=== PATIENT | female | born 1995 | race Caucasian/White ===

== ENCOUNTER 2016-10-24 20:38 | Emergency (ER) | payer OTHER ==
[~2016-10-24] VITALS: Ht 172.7 cm; Wt 79.4 kg
[2016-10-24 20:50] VITALS: BP 136/91
--- NOTE | 2016-10-24 21:05 | ED.ADGEN ---
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 She states she was eating in the cafeteria at her college and also started having pain in the left side of her throat. She states she felt her throat swell. She states the swelling has gone down since she arrived emergency department the pains persisted. She denies any troubles breathing, she points to the left side of the anterior aspect of her throat when she states where it hurts. She states she has a history of arthritis and takes treatment for this. She denies fevers chills shortness of breath, trouble swallowing, trismus. She presents to ER with her friend. Review of Systems Review of Systems Constitutional: Denies fever or chills [] Eyes: Denies change in visual acuity, redness, or eye pain [] HENT: Denies nasal congestion positive for sore throat Respiratory: Denies cough or shortness of breath [] Cardiovascular: No additional information not addressed in HPI [] GI: Denies abdominal pain, nausea, vomiting, bloody stools or diarrhea [] : Denies dysuria or hematuria [] Musculoskeletal: Denies back pain or joint pain [] Integument: Denies rash or skin lesions [] Neurologic: Denies headache, focal weakness or sensory changes [] Endocrine: Denies polyuria or polydipsia [] Current Medications Current Medications Current Medications Medications (Trade) Dose Ordered Sig/Celestino Start Time Stop Time Status Last Admin Dose Admin Info (Do NOT chart on this entry -- for MONITORING) 1 each PRN DAILY PRN 10/24/16 23:30 10/26/16 23:29 Iohexol (Omnipaque 300 Mg/ml) 75 ml 1X ONCE 10/24/16 23:30 10/24/16 23:31 DC 10/24/16 23:56 75 ML Multi-Ingredient Mouthwash/Gargle (Gi Cocktail) 20 ml 1X ONCE 10/24/16 22:00 10/24/16 22:51 DC 10/24/16 22:00 20 ML Sodium Chloride 1,000 ml @ 1,000 mls/hr 1X ONCE 10/24/16 23:30 10/25/16 00:29 DC Allergies Allergies Allergies Coded Allergies Type Severity Reaction Last Updated Verified No Known Drug Allergies 10/24/16 No Physical Exam Physical Exam Constitutional: Well developed, well nourished, no acute distress, non-toxic appearance. [] HENT: Normocephalic, atraumatic, bilateral external ears normal, oropharynx moist, no oral exudates, nose normal. Posterior first clear, no trismus, no Jt angina, no tooth decay or abscess is appreciated Eyes: PERRLA, EOMI, conjunctiva normal, no discharge. [] Neck: Normal range of motion, no tenderness, supple, no stridor. [] Cardiovascular:Heart rate regular rhythm, no murmur [] Lungs & Thorax: Bilateral breath sounds clear to auscultation [] Abdomen: Bowel sounds normal, soft, no tenderness, no masses, no pulsatile masses. [] Skin: Warm, dry, no erythema, no rash. [] Back: No tenderness, no CVA tenderness. [] Extremities: No tenderness, no cyanosis, no clubbing, ROM intact, no edema. [] Neurologic: Alert and oriented X 3, normal motor function, normal sensory function, no focal deficits noted. [] Psychologic: Affect normal, judgement normal, mood normal. [] Current Patient Data Vital Signs Vital Signs Date Time Temp Pulse Resp B/P (MAP) Pulse Ox O2 Delivery O2 Flow Rate FiO2 10/24/16 20:50 99.1 91 16 99 Room Air Lab Results Laboratory Tests Test 10/24/16 21:40 10/24/16 23:30 10/24/16 23:35 Group A Streptococcus Rapid Negative (NEGATIVE) White Blood Count 11.8 x10^3/uL (4.0-11.0) H Red Blood Count 5.24 x10^6/uL (3.50-5.40) Hemoglobin 14.9 g/dL (12.0-15.5) Hematocrit 44.0 % (36.0-47.0) Mean Corpuscular Volume 84 fL (79-100) Mean Corpuscular Hemoglobin 28 pg (25-35) Mean Corpuscular Hemoglobin Concent 34 g/dL (31-37) Red Cell Distribution Width 12.9 % (11.5-14.5) Platelet Count 312 x10^3/uL (140-400) Neutrophils (%) (Auto) 57 % (31-73) Lymphocytes (%) (Auto) 32 % (24-48) Monocytes (%) (Auto) 10 % (0-9) H Eosinophils (%) (Auto) 1 % (0-3) Basophils (%) (Auto) 1 % (0-3) Neutrophils # (Auto) 6.7 x10^3uL (1.8-7.7) Lymphocytes # (Auto) 3.7 x10^3/uL (1.0-4.8) Monocytes # (Auto) 1.1 x10^3/uL (0.0-1.1) Eosinophils # (Auto) 0.1 x10^3/uL (0.0-0.7) Basophils # (Auto) 0.1 x10^3/uL (0.0-0.2) Sodium Level 141 mmol/L (136-145) Potassium Level 3.7 mmol/L (3.5-5.1) Chloride Level 105 mmol/L (98-107) Carbon Dioxide Level 26 mmol/L (21-32) Anion Gap 10 (6-14) Blood Urea Nitrogen 14 mg/dL (7-20) Creatinine 1.0 mg/dL (0.6-1.0) Estimated GFR (Cockcroft-Gault) 71.4 BUN/Creatinine Ratio 14 (6-20) Glucose Level 93 mg/dL (70-99) Calcium Level 9.4 mg/dL (8.5-10.1) Total Bilirubin 0.5 mg/dL (0.2-1.0) Aspartate Amino Transferase (AST) 34 U/L (15-37) Alanine Aminotransferase (ALT) 98 U/L (14-59) H Alkaline Phosphatase 47 U/L (46-116) Total Protein 8.2 g/dL (6.4-8.2) Albumin 4.6 g/dL (3.4-5.0) Albumin/Globulin Ratio 1.3 (1.0-1.7) Urine Collection Type Unknown Urine Color Yellow Urine Clarity Clear Urine pH 5.5 Urine Specific [place] 1.020 Urine Protein Neg (NEG-TRACE) Urine Glucose (UA) Neg mg/dL (NEG) Urine Ketones (Stick) Neg mg/dL (NEG) Urine Blood Trace (NEG) Urine Nitrite Neg (NEG) Urine Bilirubin Neg (NEG) Urine Urobilinogen Dipstick 0.2 mg/dL (0.2 mg/dL) Urine Leukocyte Esterase Small (NEG) Urine RBC Occ /HPF (0-2) Urine WBC 5-10 /HPF (0-4) Urine Squamous Epithelial Cells Occ /LPF Urine Bacteria Few /HPF (0-FEW) EKG EKG [] Radiology/Procedures Radiology/Procedures [address] [id number] IMAGING REPORT Signed PATIENT: ARNALDO HERNÁNDEZ ACCOUNT: [id number] : 1995 LOCATION: ER AGE: 20 SEX: F EXAM STATUS: REG ER ORD. PHYSICIAN: SANTANA CHAUDHRY MD REASON: Left sided throat pain after eating tonight, throat swelling PROCEDURE: CT SOFT TISSUE NECK W/CONTRAST PROCEDURE CT neck with contrast HISTORY Left-sided throat and neck pain and swelling TECHNIQUE Exposure: One or more of the following individualized dose reduction techniques were utilized for this exam: 1. Automated exposure control. 2. Adjustment of the mA and/or kV according to patient size. 3. Use of iterative reconstruction technique. Helical CT imaging of the neck with 75 milliliters Omnipaque 300 intravenous contrast COMPARISON No prior FINDINGS No discrete narrowing, mucosal thickening, mass or mucosal enhancement of the oral cavity, nasopharynx, hypopharynx or larynx. Thyroid gland, salivary glands, submandibular space, sublingual space are unremarkable. No mass or adenopathy in the neck. Vessels unremarkable. Lung apices and bones are unremarkable. IMPRESSION No acute abnormality. Electronically signed by: Antonina Carranza MD (October 25, 2016 00:32:24) DICTATED AND SIGNED BY: ANTONINA CARRANZA MD DATE: 10/25/16 003 CC: SANTANA CHAUDHRY MD; NON,STAFF ~ Course & Med Decision Making Course & Med Decision Making Pertinent Labs and Imaging studies reviewed. (See chart for details) Labs, CT soft tissue of the neck did not show any acute abnormalities. Patient is being discharged home with pain meds. She is to follow-up with her primary care physician if her pain returns, if she has troubles breathing or other concerns, she is to return back to ER. She being discharged in stable condition this time. Final Impression Final Impression Neck Pain Problems: Dragon Disclaimer Dragon Disclaimer This electronic medical record was generated, in whole or in part, using a voice recognition dictation system. SANTANA CHAUDHRY MD October 24, 2016 21:05
[2016-10-24] MEDS ORDERED: LIDO:MAALOX 1:1 20 ML SINGLE DOSE PO ONE (22:00)
[2016-10-24] MEDS ORDERED: IOHEXOL 300 MG/ML 75 ML VIAL. IV ONE (23:30)
[2016-10-24] MEDS ORDERED: CONTRAST GIVEN MC PRN (23:30)
[2016-10-24] MEDS ORDERED: IV NORMAL SALINE 1,000ML 1,000 ML IV ONE (23:30)
[2016-10-24 23:46] LABS: BASO # 0.1 x10^3/uL (0.0-0.2); BASO % 1 % (0-3); EOS # 0.1 x10^3/uL (0.0-0.7); EOS % 1 % (0-3); HEMOGLOBIN 14.9 g/dL (12.0-15.5); LYMPH # 3.7 x10^3/uL (1.0-4.8); LYMPH % 32 % (24-48); MEAN CORPUSCULAR HEMOGLOBIN 28 pg (25-35); MEAN CORPUSCULAR HGB CONC 34 g/dL (31-37); MEAN CORPUSCULAR VOLUME 84 fL (79-100); MONO # 1.1 x10^3/uL (0.0-1.1); MONO % 10 % (0-9); NEUT # 6.7 x10^3uL (1.8-7.7); NEUT % 57 % (31-73); PLATELET COUNT 312 x10^3/uL (140-400); RED BLOOD COUNT 5.24 x10^6/uL (3.50-5.40); RED CELL DISTRIBUTION WIDTH 12.9 % (11.5-14.5); WHITE BLOOD COUNT 11.8 x10^3/uL (4.0-11.0)
[2016-10-24 23:57] LABS: ALBUMIN 4.6 g/dL (3.4-5.0); ALBUMIN/GLOBULIN RATIO 1.3 (1.0-1.7); CALCIUM 9.4 mg/dL (8.5-10.1); GFR 71.4; POTASSIUM 3.7 mmol/L (3.5-5.1); TOTAL BILIRUBIN 0.5 mg/dL (0.2-1.0); TOTAL PROTEIN 8.2 g/dL (6.4-8.2)
[2016-10-25 00:22] LABS: BILIRUBIN,URINE NEG (NEG); CLARITY,URINE CLEAR; COLOR,URINE YELLOW; GLUCOSE,URINE NEG (NEG)
[2016-10-25 00:23] LABS: BACTERIA,URINE FEW /HPF (0-FEW); NITRITE,URINE NEG (NEG); RBC,URINE OCC /HPF (0-2); SQUAMOUS EPITHELIAL CELL,UR OCC /LPF; UROBILINOGEN,URINE 0.2 mg/dL (0.2 mg/dL)
--- NOTE | 2016-10-25 00:33 | RAD ---
PROCEDURE CT neck with contrast HISTORY Left-sided throat and neck pain and swelling TECHNIQUE Exposure: One or more of the following individualized dose reduction techniques were utilized for this exam: 1. Automated exposure control. 2. Adjustment of the mA and/or kV according to patient size. 3. Use of iterative reconstruction technique. Helical CT imaging of the neck with 75 milliliters Omnipaque 300 intravenous contrast COMPARISON No prior FINDINGS No discrete narrowing, mucosal thickening, mass or mucosal enhancement of the oral cavity, nasopharynx, hypopharynx or larynx. Thyroid gland, salivary glands, submandibular space, sublingual space are unremarkable. No mass or adenopathy in the neck. Vessels unremarkable. Lung apices and bones are unremarkable. IMPRESSION No acute abnormality. Electronically signed by: David Maria MD (October 25, 2016 00:32:24)
[2016-10-25] MEDS ORDERED: HYDR-971 PO (01:07)
== END 2016-10-25 01:15 | disposition home or self-care (01) ==
LOC: ER 20:38
DX: M54.2 Cervicalgia (principal)
CPT/HCPCS: 36415; 70491; 80053; 81001; 84703; 85027; 87070; 87086; 87880; 99285; Q9967; 81025